=== PATIENT | male | born 1970 | race Two or more races ===

== ENCOUNTER 2017-04-29 16:21 | Inpatient (IN) | payer BC ==
[~2017-04-29] VITALS: Ht 177.8 cm; Wt 98.4 kg
[2017-04-30] MEDS ORDERED: CYCL5TAB PO (20:57)
[2017-04-30] MEDS ORDERED: OXYC10TA49 PO (20:57)
[2017-04-30] MEDS ORDERED: SENN-18 PO (20:57)
[2017-04-30] MEDS ORDERED: RIVA10TA PO (20:57)
[2017-04-30] MEDS ORDERED: BISA10SU8 RC (20:57)
[2017-04-30] MEDS ORDERED: OXYC5TAB3 PO (20:57)
[2017-04-30] MEDS ORDERED: HYDROCODONE/APAP 10-325 MG TABLET PO ONE (21:30)
[2017-04-30 21:45] VITALS: BP 121/78
[2017-04-30] MEDS ORDERED: Z GUARD REMEDY PASTE 57 GM TUBE TOP PRN (21:45)
[2017-04-30] MEDS ORDERED: BISACODYL 10 MG SUPP.RECT RC PRN (22:15)
[2017-04-30] MEDS ORDERED: SENNOSIDES 1 TABLET PO PRN (22:15)
[2017-05-01] MEDS: OXYCODONE HCL 5 MG TABLET PO PRN ×4 (04:08→20:51)
[2017-05-01 07:30] VITALS: BP 111/70
[2017-05-01] MEDS ORDERED: RIVAROXABAN 10 MG TABLET PO SCH (09:00)
[2017-05-01] MEDS: RIVAROXABAN 10 MG TABLET PO SCH (17:51)
[2017-05-01 20:07] VITALS: BP 118/69
[2017-05-01] MEDS: CYCLOBENZAPRINE HCL 10 MG TABLET PO PRN (22:14)
[2017-05-02] MEDS: OXYCODONE HCL 5 MG TABLET PO PRN ×3 (06:16→23:15)
[2017-05-02 07:53] LABS: BASOPHILS # (AUTO) 0.1 K/uL (0.0-8.0); BASOPHILS % (AUTO) 0.9 % (0.0-2.0); BILIRUBIN,TOTAL 1.1 mg/dL (0.2-1.0); CREATININE 1.1 mg/dL (0.6-1.3); EOSINOPHILS # (AUTO) 0.3 K/uL (0.0-0.7); EOSINOPHILS % (AUTO) 4.1 % (0.0-7.0); HEMATOCRIT 37.7 % (36.7-47.1); LYMPHOCYTES # (AUTO) 2.1 K/uL (20.0-40.0); LYMPHOCYTES % (AUTO) 30.4 % (20.5-51.5); MEAN CORPUSCULAR HEMOGLOBIN 29.1 uug (23.8-33.4); MEAN CORPUSCULAR HGB CONC 34 g/dL (32.5-36.3); MEAN CORPUSCULAR VOLUME 84.6 fL (73.0-96.2); MONOCYTES # (AUTO) 0.7 K/uL (2.0-10.0); MONOCYTES % (AUTO) 10.1 % (0.0-11.0); NEUTROPHILS # (AUTO) 3.8 K/uL (1.8-8.9); NEUTROPHILS % (AUTO) 54.5 % (38.5-71.5); PLATELET COUNT (AUTO) 356 K/uL (152-348); POTASSIUM 4.3 mmol/L (3.5-5.1); RED BLOOD CELL COUNT(AUTO) 4.46 MIL/uL (4.06-5.63); TOTAL PROTEIN, SERUM 6.8 g/dL (6.4-8.2)
[2017-05-02 08:20] VITALS: BP 123/72
[2017-05-02] MEDS: CYCLOBENZAPRINE HCL 10 MG TABLET PO PRN ×2 (10:15→18:24)
[2017-05-02] MEDS: RIVAROXABAN 10 MG TABLET PO SCH (17:17)
[2017-05-02 19:30] VITALS: BP 124/72
[2017-05-03 08:27] VITALS: BP 133/86
[2017-05-03] MEDS: OXYCODONE HCL 5 MG TABLET PO PRN (08:48)
[2017-05-03] MEDS: CYCLOBENZAPRINE HCL 10 MG TABLET PO PRN ×2 (08:48→21:09)
[2017-05-03] MEDS: RIVAROXABAN 10 MG TABLET PO SCH (16:59)
[2017-05-03 20:20] VITALS: BP 118/72
[2017-05-03] MEDS: ZOLPIDEM 5 MG TABLET PO PRN (21:46)
[2017-05-04] MEDS: OXYCODONE HCL 5 MG TABLET PO PRN ×2 (00:49→22:12)
[2017-05-04] MEDS: CYCLOBENZAPRINE HCL 10 MG TABLET PO PRN (14:11)
[2017-05-04] MEDS: RIVAROXABAN 10 MG TABLET PO SCH (17:21)
[2017-05-04 20:23] VITALS: BP 117/85
[2017-05-04] MEDS: ZOLPIDEM 5 MG TABLET PO PRN (22:12)
[2017-05-05 08:31] VITALS: BP 118/70
[2017-05-05] MEDS: RIVAROXABAN 10 MG TABLET PO SCH (16:55)
[2017-05-05 20:00] VITALS: BP 120/60
[2017-05-05] MEDS: ZOLPIDEM 5 MG TABLET PO PRN (21:47)
[2017-05-05] MEDS: OXYCODONE HCL 5 MG TABLET PO PRN (21:52)
[2017-05-06] MEDS: CYCLOBENZAPRINE HCL 10 MG TABLET PO PRN ×2 (06:16→22:15)
[2017-05-06 09:00] VITALS: BP 116/78
[2017-05-06] MEDS: RIVAROXABAN 10 MG TABLET PO SCH (17:46)
[2017-05-06 19:30] VITALS: BP 131/78
[2017-05-06] MEDS: ZOLPIDEM 5 MG TABLET PO PRN (22:14)
[2017-05-06] MEDS: OXYCODONE HCL 5 MG TABLET PO PRN (22:17)
[2017-05-07 07:00] VITALS: BP 110/74
[2017-05-07] MEDS: OXYCODONE HCL 5 MG TABLET PO PRN ×2 (07:44→22:25)
[2017-05-07] MEDS: GABAPENTIN 100 MG CAPSULE PO SCH ×2 (14:23→17:27)
[2017-05-07] MEDS: RIVAROXABAN 10 MG TABLET PO SCH (17:27)
[2017-05-07 19:30] VITALS: BP 128/74
[2017-05-07] MEDS: CYCLOBENZAPRINE HCL 10 MG TABLET PO PRN (22:26)
[2017-05-08 08:00] VITALS: BP 117/77
[2017-05-08] MEDS: GABAPENTIN 100 MG CAPSULE PO SCH ×3 (09:53→17:05)
[2017-05-08] MEDS: OXYCODONE HCL 5 MG TABLET PO PRN ×2 (11:20→20:31)
[2017-05-08] MEDS: RIVAROXABAN 10 MG TABLET PO SCH (17:06)
[2017-05-08 19:30] VITALS: BP 121/75
[2017-05-08] MEDS: CYCLOBENZAPRINE HCL 10 MG TABLET PO PRN (20:27)
[2017-05-09 08:21] VITALS: BP 124/71
[2017-05-09] MEDS: OXYCODONE HCL 5 MG TABLET PO PRN ×2 (09:25→18:52)
[2017-05-09] MEDS: GABAPENTIN 100 MG CAPSULE PO SCH ×3 (09:25→17:57)
[2017-05-09] MEDS ORDERED: MIRALAX 17 GM POWD.PACK PO PRN (10:00)
[2017-05-09] MEDS: RIVAROXABAN 10 MG TABLET PO SCH (17:58)
[2017-05-09 21:44] VITALS: BP 124/83
[2017-05-10 07:56] VITALS: BP 120/80
[2017-05-10] MEDS: GABAPENTIN 100 MG CAPSULE PO SCH ×2 (08:34→13:00)
== END 2017-05-10 14:00 | disposition home or self-care (01) | DRG 561 ==
PROVIDERS: ADMIT Physical Medicine & Rehabilitation Pain Medicine; ATTEND Physical Medicine & Rehabilitation Pain Medicine
DX: Z47.1 Aftercare following joint replacement surgery (principal); E66.9 Obesity, unspecified; Z96.641 Presence of right artificial hip joint; Z68.31 Body mass index [BMI] 31.0-31.9, adult; I10 Essential (primary) hypertension; K59.00 Constipation, unspecified
CPT/HCPCS: 36415; 70030-TC; 73501; 83735; 84100; 85025; 92523; 97110; 97112; 97116; 97165; 97530; 97535; A4663